=== PATIENT | female | born 1955 | race Caucasian/White ===

== ENCOUNTER 2017-12-25 11:26 | Observation (INO) | payer BC, OTHER ==
[2017-12-25] MEDS ORDERED: BABY ASPIRIN 81 MG CHEW PO ONE (11:42)
[2017-12-25] MEDS ORDERED: Sodium Chloride 0.9% 1000 ML 1,000 ML IV SCH (11:45)
--- NOTE | 2017-12-25 11:45 | ERPHSYRPT ---
- History of Present Illness Time Seen by Provider: 12/25/17 11:45 Historian: patient Physician History: PATIENT WITH A 40 PACK YEAR SMOKING HISTORY COMPLAINS OF LEFT SUBSTERNAL CHEST PAINS SINCE 2AM, PAIN SCALE 4/10, DENIES CHEST PAIN UPON ARRIVAL TO EMERGENCY, DENIES DIAPHORESIS, PALPITATIONS OR DYSPNEA. STATES PAIN ON OCCASION RADIATES TO LEFT ARM. Timing/Duration: yesterday Quality: sharpness Location: substernal Chest Pain Radiation: arm Severity of Pain-Max: moderate Severity of Pain-Current: none Modifying Factors: Improves With: nothing Associated Symptoms: denies symptoms Prior Chest Pain/Cardiac Workup: no prior chest pain Nitro Today/Relief: no nitro taken today Aspirin Treatment Today: 81 mg x 4, provided by ED Allergies/Adverse Reactions: Sulfa (Sulfonamide Antibiotics) Allergy (Verified 12/25/17 12:22) - Review of Systems Constitutional: No Fever, No Chills Eyes: No Symptoms Ears, Nose, & Throat: No Symptoms Respiratory: No Symptoms, No Cough, No Dyspnea Cardiac: No Chest Pain, No Edema, No Syncope Abdominal/Gastrointestinal: No Symptoms, No Abdominal Pain, No Nausea, No Vomiting, No Diarrhea Genitourinary Symptoms: No Symptoms, No Dysuria Musculoskeletal: No Symptoms, No Back Pain, No Neck Pain Skin: No Rash Neurological: No Dizziness, No Focal Weakness, No Sensory Changes Psychological: No Symptoms Endocrine: No Symptoms All Other Systems: Reviewed and Negative - Nursing Vital Signs Nursing Vital Signs: Initial Vital Signs Pulse Rate 84 12/25/17 11:44 Respiratory Rate 20 12/25/17 11:44 Blood Pressure 167/109 12/25/17 11:44 O2 Sat by Pulse Oximetry 98 12/25/17 11:44 Pain Scale Pain Intensity 0 - Physical Exam General Appearance: no apparent distress, alert Eye Exam: PERRL/EOMI, eyes nml inspection Ears, Nose, Throat Exam: normal ENT inspection, moist mucous membranes Neck Exam: normal inspection, non-tender, supple, full range of motion Respiratory Exam: normal breath sounds, lungs clear, No respiratory distress Cardiovascular Exam: regular rate/rhythm, normal heart sounds Gastrointestinal/Abdomen Exam: soft, normal bowel sounds (NONTENDER), No tenderness, No mass Back Exam: normal inspection, No CVA tenderness, No vertebral tenderness Extremity Exam: normal inspection, normal range of motion Neurologic Exam: alert, oriented x 3, cooperative, normal mood/affect, sensation nml, No motor deficits Skin Exam: normal color, warm, dry SpO2 Interpretation: normal SpO2: 98 - Course EKG Interpreted by Me: RATE, Sinus Rhythm, NORMAL AXIS (RATE 84) - Radiology Exams Chest X-ray Interpretation: Discussed w/ radiologist, Negative - CT Exams Chest CT Interpretation: Discussed w/radiologist (NEGATIVE OF PULMONARY EMBOLUS) Ordered Tests: Active Orders 24 hr Category Date Time Status Up With Assistance ROUTINE Activity 12/25/17 14:27 Ordered Call Admit Doctor for Orders ROUTINE Care 12/25/17 14:26 Ordered [employer] Counterperson STAT Care 12/25/17 11:43 Active Code Status Order ROUTINE Care 12/25/17 14:26 Ordered EKG-ER Only STAT Care 12/25/17 11:42 Active IV Care Q6H Care 12/25/17 14:26 Ordered IV Insertion STAT Care 12/25/17 11:42 Active Implement Chest Pain Pathway ROUTINE Care 12/25/17 14:26 Ordered Oxygen-ED Only NASAL CANNULA 2 lpm Care 12/25/17 11:[address] in Observation ROUTINE Care 12/25/17 14:26 Ordered Jovan Hose, Apply ROUTINE Care 12/25/17 14:26 Ordered Telemetry ROUTINE Care 12/25/17 14:26 Ordered Vital Signs Q4H Care 12/25/17 14:26 Ordered Weight,Daily 0600 Care 12/25/17 14:26 Ordered Cardiac Diet Diet 12/25/17 Dinner Ordered CHEST 1 VIEW (PORTABLE) Stat Exams 12/25/17 12:03 Completed CHEST WITH CONTRAST [CT] Stat Exams 12/25/17 12:33 Completed CBC W DIFF Stat Lab 12/25/17 11:56 Completed CMP Stat Lab 12/25/17 11:56 Completed D-DIMER QUANTITATION Stat Lab 12/25/17 11:56 Completed LIPID PROFILE AM.LAB Lab 12/26/17 04:00 Ordered NT PRO BNP Stat Lab 12/25/17 11:56 Completed PROTIME WITH INR Stat Lab 12/25/17 11:56 Completed TROPONIN Q3H Lab 12/25/17 11:56 Completed TROPONIN Q3H Lab 12/25/17 14:45 Ordered TROPONIN Q3H Lab 12/25/17 17:45 Ordered TROPONIN Q3H Lab 12/25/17 20:45 Ordered TROPONIN Q3H Lab 12/25/17 23:45 Ordered TSH [TSH, 3RD Generation] Stat Lab 12/25/17 12:47 Completed EKG Q8HX2,QAMX3,PRN RT 12/25/17 14:26 Ordered Pulse Oximetry Q4H RT 12/25/17 14:26 Ordered Transfer Order Routine Transfer 12/25/17 Ordered Medication Summary Generic Name Dose Route Start Last Admin Trade Name Freq PRN Reason Stop Dose Admin Acetaminophen 650 mg 12/25/17 14:26 Tylenol 325 Mg PO 01/24/18 14:25 Q4H PRN PRN PAIN AND/OR FEVER Al Hydrox/Mg Hydrox/Simethicone 30 ml 12/25/17 14:26 Maalox Es 30 Ml Unit Dose PO 01/24/18 14:25 Q4H PRN PRN INDIGESTION Albuterol Sulfate 2.5 mg 12/25/17 14:29 Proventil 2.5 Mg/3 Ml Neb IH 01/24/18 14:28 Q4H PRN PRN SHORTNESS OF BREATH/WHEEZING Aspirin 325 mg 12/26/17 10:00 Ecotrin 325 Mg PO 01/25/18 09:59 DAILY ROLAND Sodium Chloride 1,000 mls @ 100 mls/hr 12/25/17 11:45 12/25/17 11:59 Sodium Chloride 0.9% 1000 Ml IV 01/24/18 11:44 100 mls/hr .Q10H ROLAND Administration Sodium Chloride 500 mls @ 50 mls/hr 12/25/17 14:30 Sodium Chloride 0.9% 500 Ml IV 01/24/18 14:29 .Q10H ROLAND Lisinopril 10 mg 12/26/17 10:00 Zestril 10 Mg PO 01/25/18 09:59 DAILY ROLAND Magnesium Hydroxide 30 - 60 ml 12/25/17 14:26 Milk Of Magnesia 30 Ml PO 01/24/18 14:25 QDP PRN CONSTIPATION Morphine Sulfate 4 mg 12/25/17 14:30 Morphine Sulfate 4 Mg Inj IV 12/30/17 14:29 Q4H PRN PRN PAIN Nitroglycerin 0.4 mg 12/25/17 14:26 Nitrostat 0.4 Mg Tablet SL 01/24/18 14:25 .Q5MIN PRN CHEST PAIN Nitroglycerin 1 gm 12/25/17 22:00 Nitro-Bid 2% Ud Packets TOP 01/24/18 21:59 Q8HT ROLAND Ondansetron HCl 4 mg 12/25/17 14:26 Zofran 4 Mg/2 Ml Vial IV 01/24/18 14:25 Q4H PRN PRN NAUSEA/VOMITING Senna/Docusate Sodium 2 udtab 12/25/17 14:26 Senokot-S Tablet PO 01/24/18 14:25 BID PRN PRN CONSTIPATION Discontinued Medications Generic Name Dose Route Start Last Admin Trade Name Freq PRN Reason Stop Dose Admin Aspirin 324 mg 12/25/17 11:42 12/25/17 11:58 Baby Aspirin 81 Mg Chew PO 12/25/17 11:43 324 mg STAT ONE Administration Aspirin Confirm 12/25/17 11:52 Baby Aspirin 81 Mg Chew Administered 12/25/17 11:53 Dose 324 mg .ROUTE .STK-MED ONE Clonidine 0.2 mg 12/25/17 12:47 12/25/17 12:56 Catapres 0.1 Mg PO 12/25/17 12:48 0.2 mg STAT ONE Administration Clonidine Confirm 12/25/17 12:56 Catapres 0.1 Mg Administered 12/25/17 12:57 Dose 0.2 mg .ROUTE .STK-MED ONE Labetalol HCl 10 mg 12/25/17 12:20 12/25/17 12:29 Trandate 20 Mg/5 Ml Syringe IV 12/25/17 12:21 10 mg STAT ONE Administration Labetalol HCl Confirm 12/25/17 12:24 Trandate 20 Mg/5 Ml Syringe Administered 12/25/17 12:25 Dose 20 mg IV .STK-MED ONE Nitroglycerin 1 gm 12/25/17 12:21 12/25/17 12:29 Nitro-Bid 2% Ud Packets TOP 12/25/17 12:22 1 gm STAT ONE Administration Nitroglycerin Confirm 12/25/17 12:23 Nitro-Bid 2% Ud Packets Administered 12/25/17 12:24 Dose 1 gm .ROUTE .STK-MED ONE Lab/Rad Data: Laboratory Result Diagrams 12/25/17 11:56 11 11:56 Laboratory Results 12/25/17 12/25/17 12/25/17 Range/Units 12:47 11:56 11:56 WBC (4.0-10.5) K/mm3 RBC (4.1-5.4) M/mm3 Hgb (12.0-16.0) gm/dl Hct (35-47) % MCV (78-100) fl MCH (26-32) pg MCHC (32-36) g/dl RDW (11.5-14.0) % Plt Count (150-450) K/mm3 MPV (6-9.5) fl Gran % (36.0-66.0) % Eos # (Auto) (0-0.5) Absolute Lymphs (auto) (1.0-4.6) Absolute Monos (auto) (0.0-1.3) Lymphocytes % (24.0-44.0) % Monocytes % (0.0-12.0) % Eosinophils % (0.00-5.0) % Basophils % (0.0-0.4) % Absolute Granulocytes (1.4-6.9) Basophils # (0-0.4) PT 11.7 (9.95-12.35) SECONDS INR 1.01 (0.8-3.0) D-Dimer 582 H* (215-500) ng/mL Sodium (137-145) mmol/L Potassium (3.5-5.1) mmol/L Chloride (98-107) mmol/L Carbon Dioxide (22-30) mmol/L Anion Gap (5-15) MEQ/L BUN (7-17) mg/dL Creatinine (0.52-1.04) mg/dL Estimated GFR ML/MIN Glucose (74-106) mg/dL Calcium (8.4-10.2) mg/dL Total Bilirubin (0.2-1.3) mg/dL AST (14-36) U/L ALT (0-35) U/L Alkaline Phosphatase (38-126) U/L Troponin I < 0.012 (0.000-0.034) ng/mL NT-Pro-B Natriuret Pep (0-900) pg/mL Serum Total Protein (6.3-8.2) g/dL Albumin (3.5-5.0) g/dL TSH 3rd Generation 2.690 (0.47-4.68) mIU/L 12/25/17 12/25/17 Range/Units 11:56 11:56 WBC 5.7 (4.0-10.5) K/mm3 RBC 4.94 (4.1-5.4) M/mm3 Hgb 15.3 (12.0-16.0) gm/dl Hct 45.6 (35-47) % MCV 92.3 (78-100) fl MCH 31.0 (26-32) pg MCHC 33.6 (32-36) g/dl RDW 14.3 H (11.5-14.0) % Plt Count 312 (150-450) K/mm3 MPV 8.5 (6-9.5) fl Gran % 60.6 (36.0-66.0) % Eos # (Auto) 0.14 (0-0.5) Absolute Lymphs (auto) 1.57 (1.0-4.6) Absolute Monos (auto) 0.50 (0.0-1.3) Lymphocytes % 27.6 (24.0-44.0) % Monocytes % 8.8 (0.0-12.0) % Eosinophils % 2.5 (0.00-5.0) % Basophils % 0.5 (0.0-0.4) % Absolute Granulocytes 3.44 (1.4-6.9) Basophils # 0.03 (0-0.4) PT (9.95-12.35) SECONDS INR (0.8-3.0) D-Dimer (215-500) ng/mL Sodium 140 (137-145) mmol/L Potassium 4.1 (3.5-5.1) mmol/L Chloride 104 (98-107) mmol/L Carbon Dioxide 29 (22-30) mmol/L Anion Gap 11.2 (5-15) MEQ/L BUN 14 (7-17) mg/dL Creatinine 0.74 (0.52-1.04) mg/dL Estimated GFR > 60.0 ML/MIN Glucose 90 (74-106) mg/dL Calcium 9.5 (8.4-10.2) mg/dL Total Bilirubin 0.50 (0.2-1.3) mg/dL AST 20 (14-36) U/L ALT 13 (0-35) U/L Alkaline Phosphatase 65 (38-126) U/L Troponin I (0.000-0.034) ng/mL NT-Pro-B Natriuret Pep 53.9 (0-900) pg/mL Serum Total Protein 7.9 (6.3-8.2) g/dL Albumin 4.5 (3.5-5.0) g/dL TSH 3rd Generation (0.47-4.68) mIU/L - Progress Progress: improved Progress Note: 12/25/17 12:12 ADMINISTERED 4 BABY ASPIRIN, IV NORMAL SALINE AT 100ML/HR, LABETOLOL 10MG IV AND CATAPRES 0.2MG ORALLY, APPLICATION NITROPASTE 1" TO ANTERIOR CHEST WALL, BP 190/104 IMPROVED TO BP 129/84 12/25/17 14:[address] Brown (DISCUSSED WITH DR BROWN AT 1415 FOR OBSERVATION) - Departure Time of Disposition: 14:30 Departure Disposition: Observation Clinical Impression: ACUTE CHEST PAIN, HYPERTENSION Condition: Stable Critical Care Time: No Referrals: IMAN TINSLEY [Primary Care Provider] -
[2017-12-25] MEDS ORDERED: Sodium Chloride 0.9% 1000 ML 1,000 ML ONE (11:52)
[2017-12-25] MEDS ORDERED: BABY ASPIRIN 81 MG CHEW ONE (11:52)
[2017-12-25 11:57] LABS: BASOPHIL % 0.5 % (0.0-0.4); Basophil (Absolute #) 0.03 (0-0.4); Eosinophil % 2.5 % (0.00-5.0); Eosinophil (Absolute #) 0.14 (0-0.5); Granulocyte Absolute (ANC) 3.44 (1.4-6.9); Granulocytes % 60.6 % (36.0-66.0); Hematocrit 45.6 % (35-47); Hemoglobin 15.3 gm/dl (12.0-16.0); Lymphocyte (Absolute #) 1.57 (1.0-4.6); Lymphocytes % 27.6 % (24.0-44.0); Mean Cell Volume 92.3 fl (78-100); Mean Corpuscular Hgb Concent. 33.6 g/dl (32-36); Mean Platelet Volume 8.5 fl (6-9.5); Monocytes % 8.8 % (0.0-12.0); Platelet Count 312 K/mm3 (150-450); Red Blood Count 4.94 M/mm3 (4.1-5.4); Red Cell Distribution Width 14.3 % (11.5-14.0); White Blood Count 5.7 K/mm3 (4.0-10.5)
[2017-12-25 12:17] LABS: INR 1.01 (0.8-3.0)
[2017-12-25] MEDS ORDERED: TRANDATE 20 MG/5 ML SYRINGE IV ONE ×2 (12:20→12:24)
[2017-12-25] MEDS ORDERED: NITRO-BID 2% UD PACKETS TOP ONE (12:21)
[2017-12-25] MEDS ORDERED: NITRO-BID 2% UD PACKETS ONE (12:23)
--- NOTE | 2017-12-25 12:28 | XRAY ---
Indication: Chest pain. Comparison: None Portable chest hyperinflated and clear. Heart and mediastinal structures within normal limits. Bony thorax intact with mild osteopenia and moderate double curvature thoracolumbar scoliosis. Impression: Nonacute hyperinflated chest with chronic features.
[2017-12-25 12:32] LABS: ALBUMIN 4.5 g/dL (3.5-5.0); ALKALINE PHOSPHATASE 65 U/L (38-126); ANION GAP 11.2 MEQ/L (5-15); BLOOD UREA NITROGEN 14 mg/dL (7-17); CHLORIDE 104 mmol/L (98-107); Calcium 9.5 mg/dL (8.4-10.2); Carbon Dioxide 29 mmol/L (22-30); Creatinine 1 0.74 mg/dL (0.52-1.04); Glucose 90 mg/dL (74-106); NT PRO BNP 53.9 pg/mL (0-900); Potassium 4.1 mmol/L (3.5-5.1); SGOT/AST 20 U/L (14-36); SGPT/ALT 13 U/L (0-35); SODIUM 140 mmol/L (137-145); Total Protein 7.9 g/dL (6.3-8.2)
[2017-12-25] MEDS ORDERED: Catapres 0.1 MG PO ONE (12:47)
[2017-12-25] MEDS ORDERED: Catapres 0.1 MG ONE (12:56)
--- NOTE | 2017-12-25 13:51 | XRAY ---
Indication: Chest pain. Elevated d-dimer. Multiple contiguous axial images obtained through the chest using 80 cc Isovue 370 contrast and PE protocol. Comparison: None There is good opacification of the pulmonary arteries to include the lobar and segmental branches. No filling defect or pulmonary embolus. Heart is not enlarged. Aorta demonstrates minimal arch calcifications without aneurysm/dissection. No pathologic mediastinal/hilar lymphadenopathy. Examination of the lung parenchyma demonstrates minimal bilateral dependent atelectasis and minimal peripheral right lower lobe fibrosis/scarring. No suspicious pulmonary mass, infiltrate, or effusion. Bony thorax intact with minimal degenerative changes throughout the spine and double coverture thoracolumbar scoliosis. Limited upper abdomen including adrenal glands unremarkable. Impression: Negative pulmonary embolus. No acute cardiopulmonary abnormalities. Incidental scoliosis. CTDI 10.00
[2017-12-25] MEDS ORDERED: Nitrostat 0.4 MG Tablet SL PRN (14:26)
[2017-12-25] MEDS ORDERED: Senokot-S Tablet PO PRN (14:26)
[2017-12-25] MEDS ORDERED: TYLENOL 325 MG PO PRN (14:26)
[2017-12-25] MEDS ORDERED: Zofran 4 MG/2 ML VIAL IV PRN (14:26)
[2017-12-25] MEDS ORDERED: MAALOX ES 30 ML UNIT DOSE PO PRN (14:26)
[2017-12-25] MEDS ORDERED: MILK OF MAGNESIA 30 ML PO PRN (14:26)
[2017-12-25] MEDS ORDERED: PROVENTIL 2.5 MG/3 ML NEB IH PRN (14:29)
[2017-12-25] MEDS ORDERED: MORPHINE SULFATE 4 MG INJ IV PRN (14:30)
[2017-12-25] MEDS: Sodium Chloride 0.9% 1000 ML 1,000 ML IV SCH (16:18)
--- NOTE | 2017-12-25 16:31 | PCM.HP ---
History of Present Illness - Chief Complaint Chief Complaint: CP. HTN History of Present Illness: is a 62 year old female who has not seen a physician for several years. She reports onset of left/substernal chest pain at 2am this morning, pain is aching and radiates to the her left upper back. had some associated numbness in the left arm, no shortness of breath, no nausea, no diaphoresis. She has no cardiac history but is a long time smoker with a family hx of [place] at an early age in her son. She felt as though the pain was from a fall she had while walking her dog 4 days ago, has had back pain and some muscle soreness since the fall. she is pain-free at this time, was very hypertensive on arrival. has never been on htn meds in the past. - Review of Systems Constitutional: No Fever, No Chills Eyes: No Symptoms Ears, Nose, & Throat: No Symptoms Respiratory: No Cough, No Short Of Breath Cardiac: Chest Pain Abdominal/Gastrointestinal: No Symptoms Genitourinary Symptoms: No Dysuria Skin: No Rash Neurological: No Dizziness, No Focal Weakness, No Sensory Changes Psychological: No Symptoms All Other Systems: Reviewed and Negative Medications & Allergies Home Medications: Home Medication List No Reportable Medications [No Reported Medications] 12/25/17 [History Confirmed 12/25/17] Allergies/Adverse Reactions: Allergies Allergy/AdvReac Type Severity Reaction Status Date / Time Sulfa (Sulfonamide Allergy Verified 12/25/17 12:22 Antibiotics) - Past Medical History Past Medical History: No - Female History Are you now?: No - Past Surgical History Past Surgical History: Yes Other Surgical History: lymph node removal-left axilla. carpal tunnel - Social History Smoking Status: Current every day smoker How long have you smoked: 42 Alcohol: None Drug Use: none Significant Family History: heart disease (son age 33), cancer (mother) - Physical Exam Vital Signs: Vital Signs - 24 hr Temp Pulse Pulse Resp BP Pulse Ox 12/25/17 16:06 95 12/25/17 15:45 98.8 F 91 H 18 135/75 12/25/17 15:18 88 20 138/81 94 L 12/25/17 14:40 94 H 20 133/78 96 12/25/17 14:32 98 12/25/17 14:18 90 20 129/84 94 L 12/25/17 13:36 86 20 162/107 94 L 12/25/17 12:19 90 20 185/113 95 12/25/17 11:44 84 84 20 167/109 98 General Appearance: no apparent distress, alert, thin Neurologic Exam: alert, oriented x 3, cooperative, rock star II-XII nml as tested, normal mood/affect, sensation nml, No motor deficits, No sensory deficit Eye Exam: PERRL/EOMI, eyes nml inspection Neck Exam: normal inspection, non-tender, supple, full range of motion Respiratory Exam: normal breath sounds, lungs clear, No respiratory distress Cardiovascular Exam: regular rate/rhythm, normal heart sounds, normal peripheral pulses Gastrointestinal/Abdomen Exam: soft, normal bowel sounds, No tenderness, No mass Skin Exam: normal color, warm, dry, No rash Results - Labs Lab/Micro Results: Lab Results-Last 24 Hours 12/25/17 12/25/17 12/25/17 Range/Units 11:56 11:56 11:56 WBC 5.7 (4.0-10.5) K/mm3 RBC 4.94 (4.1-5.4) M/mm3 Hgb 15.3 (12.0-16.0) gm/dl Hct 45.6 (35-47) % MCV 92.3 (78-100) fl MCH 31.0 (26-32) pg MCHC 33.6 (32-36) g/dl RDW 14.3 H (11.5-14.0) % Plt Count 312 (150-450) K/mm3 MPV 8.5 (6-9.5) fl Gran % 60.6 (36.0-66.0) % Eos # (Auto) 0.14 (0-0.5) Absolute Lymphs (auto) 1.57 (1.0-4.6) Absolute Monos (auto) 0.50 (0.0-1.3) Lymphocytes % 27.6 (24.0-44.0) % Monocytes % 8.8 (0.0-12.0) % Eosinophils % 2.5 (0.00-5.0) % Basophils % 0.5 (0.0-0.4) % Absolute Granulocytes 3.44 (1.4-6.9) Basophils # 0.03 (0-0.4) PT 11.7 (9.95-12.35) SECONDS INR 1.01 (0.8-3.0) D-Dimer 582 H* (215-500) ng/mL Sodium 140 (137-145) mmol/L Potassium 4.1 (3.5-5.1) mmol/L Chloride 104 (98-107) mmol/L Carbon Dioxide 29 (22-30) mmol/L Anion Gap 11.2 (5-15) MEQ/L BUN 14 (7-17) mg/dL Creatinine 0.74 (0.52-1.04) mg/dL Estimated GFR > 60.0 ML/MIN Glucose 90 (74-106) mg/dL Calcium 9.5 (8.4-10.2) mg/dL Total Bilirubin 0.50 (0.2-1.3) mg/dL AST 20 (14-36) U/L ALT 13 (0-35) U/L Alkaline Phosphatase 65 (38-126) U/L Troponin I (0.000-0.034) ng/mL NT-Pro-B Natriuret Pep 53.9 (0-900) pg/mL Serum Total Protein 7.9 (6.3-8.2) g/dL Albumin 4.5 (3.5-5.0) g/dL TSH 3rd Generation (0.47-4.68) mIU/L 12/25/17 12/25/17 Range/Units 11:56 12:47 WBC (4.0-10.5) K/mm3 RBC (4.1-5.4) M/mm3 Hgb (12.0-16.0) gm/dl Hct (35-47) % MCV (78-100) fl MCH (26-32) pg MCHC (32-36) g/dl RDW (11.5-14.0) % Plt Count (150-450) K/mm3 MPV (6-9.5) fl Gran % (36.0-66.0) % Eos # (Auto) (0-0.5) Absolute Lymphs (auto) (1.0-4.6) Absolute Monos (auto) (0.0-1.3) Lymphocytes % (24.0-44.0) % Monocytes % (0.0-12.0) % Eosinophils % (0.00-5.0) % Basophils % (0.0-0.4) % Absolute Granulocytes (1.4-6.9) Basophils # (0-0.4) PT (9.95-12.35) SECONDS INR (0.8-3.0) D-Dimer (215-500) ng/mL Sodium (137-145) mmol/L Potassium (3.5-5.1) mmol/L Chloride (98-107) mmol/L Carbon Dioxide (22-30) mmol/L Anion Gap (5-15) MEQ/L BUN (7-17) mg/dL Creatinine (0.52-1.04) mg/dL Estimated GFR ML/MIN Glucose (74-106) mg/dL Calcium (8.4-10.2) mg/dL Total Bilirubin (0.2-1.3) mg/dL AST (14-36) U/L ALT (0-35) U/L Alkaline Phosphatase (38-126) U/L Troponin I < 0.012 (0.000-0.034) ng/mL NT-Pro-B Natriuret Pep (0-900) pg/mL Serum Total Protein (6.3-8.2) g/dL Albumin (3.5-5.0) g/dL TSH 3rd Generation 2.690 (0.47-4.68) mIU/L - Radiology Impressions Radiology Exams & Impressions: Radiology Procedures Category Date Time Status CHEST 1 VIEW (PORTABLE) Stat Exams 12/25/17 12:03 Completed CHEST WITH CONTRAST [CT] Stat Exams 12/25/17 12:33 Completed - Other Procedures and Tests Respiratory Therapy 12/25/17 16:06 Respiratory Therapy Assessment DAILY 12/25/17 19:36 EKG ONCE 12/26/17 05:00 EKG ONCE 12/27/17 05:00 EKG ONCE 12/28/17 05:00 EKG ONCE Assessment/Plan (1) Chest pain Current Visit: Yes Status: Acute Assessment & Plan: will r/o OK, likely noncardiac. will get echo in the am Code(s): R07.9 - CHEST PAIN, UNSPECIFIED (2) Hypertensive urgency Current Visit: Yes Status: Acute Assessment & Plan: normotensive after receiving labetalol and clonidine in ER, continue lisinopril 10mg daily Code(s): I16.0 - HYPERTENSIVE URGENCY
[2017-12-25] MEDS: NITRO-BID 2% UD PACKETS TOP SCH (22:38)
[2017-12-26] MEDS: Sodium Chloride 0.9% 1000 ML 1,000 ML IV SCH (04:07)
[2017-12-26] MEDS: NITRO-BID 2% UD PACKETS TOP SCH (05:30)
[2017-12-26 05:48] LABS: Risk Ratio 3.9
--- NOTE | 2017-12-26 09:08 | PCM.DS ---
Discharge Summary Date of Admission: 12/25/17 15:30 Admitting Physician: BRAYDEN BROWN Primary Care Provider: IMAN TINSLEY Allergies Allergies Sulfa (Sulfonamide Antibiotics) Allergy (Verified 12/25/17 12:22) Hospital Summary - Hospital Course Hospital Course: Pt is 62 yo female with no local MD who came to ER [facility]. NC ruled out with negative troponin x 5. She did have an elevated d-dimer but CTA chest nonacute and negative for PE. She has not seen a doctor for years. She was to have an echo yesterday. Overnight her O2 sat dropped so she had an overnight pulse ox done and should qualify for home O2 at night (I discussed with the patient). She also snores and will need a sleep study outpatient. Her WBC and Hgb were normal here. BMP normal. Chol 142, HDL 36, triglycerides 59, LDL 89. Pt was quite hypertensive on arrival. Since then BP have been in the 110s and 130s. Will go home on lisinopril 10mg. Plans to f/u with Dr. Brown in 1 week. - Vitals & Intake/Output Vital Signs: Vital Signs Temperature 97.6 F 12/26/17 08:08 Pulse Rate 65 12/26/17 08:08 Respiratory Rate 20 12/26/17 08:08 Blood Pressure 130/78 12/26/17 08:08 O2 Sat by Pulse Oximetry 96 12/26/17 08:08 Intake & Output: Intake & Output 12/23/17 12/24/17 12/25/17 12/26/17 12:59 11:59 11:59 11:59 Intake Total 1582 Balance 1582 Weight 54.431 kg 56.9 kg - Lab Result Diagrams: 12/25/17 11:56 12/25/17 11:56 Lab Results-Last 24 Hrs: Lab Results-Last 24 Hours 12/25/17 12/25/17 12/25/17 Range/Units 00:10 11:56 11:56 WBC 5.7 (4.0-10.5) K/mm3 RBC 4.94 (4.1-5.4) M/mm3 Hgb 15.3 (12.0-16.0) gm/dl Hct 45.6 (35-47) % MCV 92.3 (78-100) fl MCH 31.0 (26-32) pg MCHC 33.6 (32-36) g/dl RDW 14.3 H (11.5-14.0) % Plt Count 312 (150-450) K/mm3 MPV 8.5 (6-9.5) fl Gran % 60.6 (36.0-66.0) % Eos # (Auto) 0.14 (0-0.5) Absolute Lymphs (auto) 1.57 (1.0-4.6) Absolute Monos (auto) 0.50 (0.0-1.3) Lymphocytes % 27.6 (24.0-44.0) % Monocytes % 8.8 (0.0-12.0) % Eosinophils % 2.5 (0.00-5.0) % Basophils % 0.5 (0.0-0.4) % Absolute Granulocytes 3.44 (1.4-6.9) Basophils # 0.03 (0-0.4) PT (9.95-12.35) SECONDS INR (0.8-3.0) D-Dimer (215-500) ng/mL Sodium 140 (137-145) mmol/L Potassium 4.1 (3.5-5.1) mmol/L Chloride 104 (98-107) mmol/L Carbon Dioxide 29 (22-30) mmol/L Anion Gap 11.2 (5-15) MEQ/L BUN 14 (7-17) mg/dL Creatinine 0.74 (0.52-1.04) mg/dL Estimated GFR > 60.0 ML/MIN Glucose 90 (74-106) mg/dL Calcium 9.5 (8.4-10.2) mg/dL Total Bilirubin 0.50 (0.2-1.3) mg/dL AST 20 (14-36) U/L ALT 13 (0-35) U/L Alkaline Phosphatase 65 (38-126) U/L Troponin I < 0.012 (0.000-0.034) ng/mL NT-Pro-B Natriuret Pep 53.9 (0-900) pg/mL Serum Total Protein 7.9 (6.3-8.2) g/dL Albumin 4.5 (3.5-5.0) g/dL Triglycerides (30-150) mg/dL Cholesterol (50-200) mg/dL LDL Cholesterol (30-100) mg/dL HDL Cholesterol (40-60) mg/dL Heart Disease Risk Ratio TSH 3rd Generation (0.47-4.68) mIU/L 12/25/17 12/25/17 12/25/17 Range/Units 11:56 11:56 12:47 WBC (4.0-10.5) K/mm3 RBC (4.1-5.4) M/mm3 Hgb (12.0-16.0) gm/dl Hct (35-47) % MCV (78-100) fl MCH (26-32) pg MCHC (32-36) g/dl RDW (11.5-14.0) % Plt Count (150-450) K/mm3 MPV (6-9.5) fl Gran % (36.0-66.0) % Eos # (Auto) (0-0.5) Absolute Lymphs (auto) (1.0-4.6) Absolute Monos (auto) (0.0-1.3) Lymphocytes % (24.0-44.0) % Monocytes % (0.0-12.0) % Eosinophils % (0.00-5.0) % Basophils % (0.0-0.4) % Absolute Granulocytes (1.4-6.9) Basophils # (0-0.4) PT 11.7 (9.95-12.35) SECONDS INR 1.01 (0.8-3.0) D-Dimer 582 H* (215-500) ng/mL Sodium (137-145) mmol/L Potassium (3.5-5.1) mmol/L Chloride (98-107) mmol/L Carbon Dioxide (22-30) mmol/L Anion Gap (5-15) MEQ/L BUN (7-17) mg/dL Creatinine (0.52-1.04) mg/dL Estimated GFR ML/MIN Glucose (74-106) mg/dL Calcium (8.4-10.2) mg/dL Total Bilirubin (0.2-1.3) mg/dL AST (14-36) U/L ALT (0-35) U/L Alkaline Phosphatase (38-126) U/L Troponin I < 0.012 (0.000-0.034) ng/mL NT-Pro-B Natriuret Pep (0-900) pg/mL Serum Total Protein (6.3-8.2) g/dL Albumin (3.5-5.0) g/dL Triglycerides (30-150) mg/dL Cholesterol (50-200) mg/dL LDL Cholesterol (30-100) mg/dL HDL Cholesterol (40-60) mg/dL Heart Disease Risk Ratio TSH 3rd Generation 2.690 (0.47-4.68) mIU/L 12/25/17 12/25/17 12/25/17 Range/Units 18:20 20:55 Unknown WBC (4.0-10.5) K/mm3 RBC (4.1-5.4) M/mm3 Hgb (12.0-16.0) gm/dl Hct (35-47) % MCV (78-100) fl MCH (26-32) pg MCHC (32-36) g/dl RDW (11.5-14.0) % Plt Count (150-450) K/mm3 MPV (6-9.5) fl Gran % (36.0-66.0) % Eos # (Auto) (0-0.5) Absolute Lymphs (auto) (1.0-4.6) Absolute Monos (auto) (0.0-1.3) Lymphocytes % (24.0-44.0) % Monocytes % (0.0-12.0) % Eosinophils % (0.00-5.0) % Basophils % (0.0-0.4) % Absolute Granulocytes (1.4-6.9) Basophils # (0-0.4) PT (9.95-12.35) SECONDS INR (0.8-3.0) D-Dimer (215-500) ng/mL Sodium (137-145) mmol/L Potassium (3.5-5.1) mmol/L Chloride (98-107) mmol/L Carbon Dioxide (22-30) mmol/L Anion Gap (5-15) MEQ/L BUN (7-17) mg/dL Creatinine (0.52-1.04) mg/dL Estimated GFR ML/MIN Glucose (74-106) mg/dL Calcium (8.4-10.2) mg/dL Total Bilirubin (0.2-1.3) mg/dL AST (14-36) U/L ALT (0-35) U/L Alkaline Phosphatase (38-126) U/L Troponin I < 0.012 < 0.012 < 0.012 (0.000-0.034) ng/mL NT-Pro-B Natriuret Pep (0-900) pg/mL Serum Total Protein (6.3-8.2) g/dL Albumin (3.5-5.0) g/dL Triglycerides (30-150) mg/dL Cholesterol (50-200) mg/dL LDL Cholesterol (30-100) mg/dL HDL Cholesterol (40-60) mg/dL Heart Disease Risk Ratio TSH 3rd Generation (0.47-4.68) mIU/L 12/26/17 Range/Units 05:10 WBC (4.0-10.5) K/mm3 RBC (4.1-5.4) M/mm3 Hgb (12.0-16.0) gm/dl Hct (35-47) % MCV (78-100) fl MCH (26-32) pg MCHC (32-36) g/dl RDW (11.5-14.0) % Plt Count (150-450) K/mm3 MPV (6-9.5) fl Gran % (36.0-66.0) % Eos # (Auto) (0-0.5) Absolute Lymphs (auto) (1.0-4.6) Absolute Monos (auto) (0.0-1.3) Lymphocytes % (24.0-44.0) % Monocytes % (0.0-12.0) % Eosinophils % (0.00-5.0) % Basophils % (0.0-0.4) % Absolute Granulocytes (1.4-6.9) Basophils # (0-0.4) PT (9.95-12.35) SECONDS INR (0.8-3.0) D-Dimer (215-500) ng/mL Sodium (137-145) mmol/L Potassium (3.5-5.1) mmol/L Chloride (98-107) mmol/L Carbon Dioxide (22-30) mmol/L Anion Gap (5-15) MEQ/L BUN (7-17) mg/dL Creatinine (0.52-1.04) mg/dL Estimated GFR ML/MIN Glucose (74-106) mg/dL Calcium (8.4-10.2) mg/dL Total Bilirubin (0.2-1.3) mg/dL AST (14-36) U/L ALT (0-35) U/L Alkaline Phosphatase (38-126) U/L Troponin I (0.000-0.034) ng/mL NT-Pro-B Natriuret Pep (0-900) pg/mL Serum Total Protein (6.3-8.2) g/dL Albumin (3.5-5.0) g/dL Triglycerides 59 (30-150) mg/dL Cholesterol 142 (50-200) mg/dL LDL Cholesterol 89 (30-100) mg/dL HDL Cholesterol 36 L (40-60) mg/dL Heart Disease Risk Ratio 3.9 TSH 3rd Generation (0.47-4.68) mIU/L - Radiology Exams Ordered Rad Exams-Entire Visit: Radiology Procedures Category Date Time Status CHEST 1 VIEW (PORTABLE) Stat Exams 12/25/17 12:03 Completed CHEST WITH CONTRAST [CT] Stat Exams 12/25/17 12:33 Completed ECHO W/2D AND DOPPLER [US] Routine Exams 12/26/17 07:00 Ordered - Procedures and Test Procedures and Tests throughout Hospitalization: Therapy Orders & Screens 12/25/17 14:26 EKG Q8HX2,QAMX3,PRN Comment: 12/25/17 15:59 Smoking Cessation Education ONCE Comment: Diagnosis: CP. HTN Smoking Status: Current every day smoker How long have you smoked: 42 Have you smoked in the past 12 months: Yes Approximately how many cigarettes per day: 22 12/25/17 16:06 Respiratory Therapy Assessment DAILY Comment: Diagnosis: CP. HTN 12/25/17 19:36 EKG ONCE Comment: Diagnosis: CP. HTN 12/26/17 05:00 EKG ONCE Comment: Diagnosis: CP. HTN 12/27/17 05:00 EKG ONCE Comment: Diagnosis: CP. HTN 12/28/17 05:00 EKG ONCE Comment: Diagnosis: CP. HTN Discharge Exam General Appearance: no apparent distress, alert Neurologic Exam: oriented x 3, cooperative Skin Exam: normal color, warm, dry, No rash Eye Exam: eyes nml inspection Ears, Nose, Throat Exam: moist mucous membranes Respiratory Exam: normal breath sounds, lungs clear, No crackles/rales, No rhonchi, No wheezing Cardiovascular Exam: regular rate/rhythm, normal heart sounds, No murmur Gastrointestinal/Abdomen Exam: soft, normal bowel sounds, No tenderness, No distention Extremity Exam: normal inspection, No pedal edema, No swelling Final Diagnosis/Problem List - Final Discharge Diagnosis/Problem (1) Chest pain Current Visit: Yes Status: Acute Onset Date: ~12/25/17 Assessment & Plan: NC ruled out with negative troponins x 5. May need outpatient stress test; would have her discuss with Dr. Brown at follow up visit. He will also have the echo results by then. (2) Hypertension Current Visit: Yes Status: Acute Assessment & Plan: continue 10mg lisinopril daily. (3) Elevated d-dimer Current Visit: Yes Status: Acute Onset Date: ~12/25/17 Assessment & Plan: CT chest was neg for PE. (4) Hypertensive urgency Current Visit: Yes Status: Resolved Onset Date: ~12/25/17 (5) Smoker Current Visit: Yes Status: Chronic - Discharge Disposition: Home, Self-Care Condition: Good Prescriptions: New Nitroglycerin 0.3 mg SL DAILY PRN #25 tab.subl MDD 3 PRN Reason: Chest Pain Lisinopril 10 mg [Zestril 10 MG] 10 mg PO DAILY #30 tablet Follow up with: IMAN TINSLEY [Primary Care Provider] - 1 Week BRAYDEN BROWN MD [Family Provider] - 1 Week
[2017-12-26] MEDS ORDERED: Ecotrin 325 MG PO SCH (10:00)
[2017-12-26] MEDS ORDERED: Zestril 10 MG PO SCH (10:00)
[2017-12-26 12:01] VITALS: BP 121/59; PULSE 76
[2017-12-26 14:53] VITALS: O2SAT 96
--- NOTE | 2017-12-26 15:45 | ECHO ---
DATE OF PROCEDURE: 12/26/2017 CLINICAL INFORMATION: Chest pain. The M-mode 2D, and Doppler echocardiogram including color flow Doppler shows normal contractibility of the left ventricle with an ejection fraction calculated at 70%. The left ventricle is normal in size at 4.6 cm. There is no apical thrombus present. The septal wall thickness is normal at 0.8 cm. The left ventricular posterior wall thickness is normal at 1.1 cm. The left ventricle appears to be normal in size and function. The left atrium is normal at 2.6 cm. The interatrial septum is intact. The right atrium is normal. The aortic valve opens well. There is mitral valve leaflet thickening. Mitral valve prolapse cannot be ruled out. There is mild mitral regurgitation present. There is mild tricuspid regurgitation. The right ventricular systolic pressure is normal at 29 mm of Mercury. The pulmonic valve is not well visualized. The aortic root is grossly normal. There is no pericardial effusion present. IMPRESSION: 1) MILD MITRAL REGURGITATION. 2) MILD TRICUSPID REGURGITATION. 3) NORMAL RIGHT VENTRICULAR SYSTOLIC PRESSURE. 4) NORMAL CONTRACTILITY OF THE LEFT VENTRICLE.
== END 2017-12-26 15:00 | disposition home or self-care (01) ==
LOC: ED 11:26 → MED SURG 15:30
PROVIDERS: ADMIT Family Medicine; ATTEND Family Medicine
DX: R07.9 Chest pain, unspecified (principal); I16.0 Hypertensive urgency; F51.9 Sleep disorder not due to a substance or known physiological condition, unspecified; R09.02 Hypoxemia; R06.83 Snoring; Z99.81 Dependence on supplemental oxygen
CPT/HCPCS: 36000; 36415; 71045; 71260; 80053; 80061; 83721; 83880; 84443; 84484; 85025; 85379; 85610; 93005; 93041; 93268; 93306; 94762; 96360; 96361; 96374; 99285; A9270-GY; G0378

== ENCOUNTER 2019-05-08 19:32 | Emergency (ER) | payer BC ==
--- NOTE | 2019-05-08 19:37 | ERPHSYRPT ---
- History of Present Illness Time Seen by Provider: 05/08/19 19:37 Source: patient, family Exam Limitations: no limitations Physician History: This is a 63-year-old female who has a history of hypertension and felt as though her blood pressure was elevated at work today. She had a similar episode of anxiety, mild left chest wall pain and shaking. When she arrived at the emergency department, her blood pressure was elevated. Patient takes lisinopril for her blood pressure. She occasionally uses nitroglycerin per her report for her high blood pressure. Patient arrives with no chest pain. She states she still feels anxious. Patient did not take any aspirin or nitroglycerin prior to arrival. Patient denies shortness of breath. She denies abdominal pain. Timing/Duration: today Severity: mild Associated Symptoms: chest pain (Left anterior) Allergies/Adverse Reactions: Sulfa (Sulfonamide Antibiotics) Allergy (Verified 05/08/19 20:09) Home Medications: Lisinopril 10 mg [Zestril 10 MG] 20 mg PO DAILY 05/08/19 [History] Hx Tetanus, Diphtheria Vaccination/Date Given: No Hx Influenza Vaccination/Date Given: No Hx Pneumococcal Vaccination/Date Given: No - Review of Systems Constitutional: No Symptoms Eyes: No Symptoms Ears, Nose, & Throat: No Symptoms Respiratory: No Symptoms Cardiac: Chest Pain (Mild left anterior) Abdominal/Gastrointestinal: No Symptoms ( chest wall) Genitourinary Symptoms: No Symptoms Musculoskeletal: No Symptoms Skin: No Symptoms Neurological: No Symptoms Psychological: Anxiety Endocrine: No Symptoms Hematologic/Lymphatic: No Symptoms Immunological/Allergic: No Symptoms All Other Systems: Reviewed and Negative - Past Medical History Pertinent Past Medical History: No Neurological History: No Pertinent History ENT History: No Pertinent History Cardiac History: No Pertinent History Respiratory History: No Pertinent History Endocrine Medical History: No Pertinent History Musculoskeletal History: No Pertinent History GI Medical History: No Pertinent History History: No Pertinent History Psycho-Social History: No Pertinent History Female Reproductive Disorders: No Pertinent History - Past Surgical History Past Surgical History: Yes Neuro Surgical History: No Pertinent History Cardiac: No Pertinent History Respiratory: No Pertinent History Gastrointestinal: No Pertinent History Genitourinary: No Pertinent History Musculoskeletal: No Pertinent History Female Surgical History: No Pertinent History Other Surgical History: lymph node removal-left axilla. carpal tunnel - Social History Smoking Status: Current every day smoker How long have you smoked: 42 Drug Use: none Patient Lives Alone: No Significant Family History: heart disease (son age 33), cancer (mother) - Nursing Vital Signs Nursing Vital Signs: Initial Vital Signs Temperature 99.0 F 05/08/19 19:59 Pulse Rate 115 H 05/08/19 19:59 Respiratory Rate 17 05/08/19 19:59 Blood Pressure 152/106 05/08/19 19:59 O2 Sat by Pulse Oximetry 99 05/08/19 19:59 Pain Scale Pain Intensity 0 - Physical Exam General Appearance: no apparent distress, alert, anxiety Eye Exam: PERRL/EOMI, eyes nml inspection Ears, Nose, Throat Exam: normal ENT inspection, moist mucous membranes Neck Exam: normal inspection, non-tender, supple, full range of motion Respiratory Exam: normal breath sounds, chest tenderness (Mild left anterior. Has resolved.), lungs clear, airway intact, No respiratory distress Cardiovascular Exam: regular rate/rhythm, normal heart sounds, normal peripheral pulses Gastrointestinal/Abdomen Exam: soft, No normal bowel sounds, No tenderness Pelvic Exam: not done Rectal Exam: not done Back Exam: normal inspection, normal range of motion, No CVA tenderness, No vertebral tenderness Extremity Exam: normal inspection, normal range of motion, pelvis stable Neurologic Exam: alert, oriented x 3, cooperative, teletypesetter II-XII nml as tested Skin Exam: normal color, warm, dry Lymphatic Exam: No adenopathy SpO2 Interpretation: normal O2 Delivery: Room Air - Course Nursing assessment & vital signs reviewed: Yes EKG Interpreted by Me: RATE (101), Sinus Tach, NORMAL AXIS, NORMAL INTERVALS, NORMAL QRS Ordered Tests: Active Orders 24 hr Category Date Time Status Alley Cleaner STAT Care 05/08/19 20:12 Active EKG-ER Only STAT Care 05/08/19 20:11 Active IV Insertion STAT Care 05/08/19 20:11 Active Pulse Oximetry (ED) STAT Care 05/08/19 20:11 Active CBC W DIFF Stat Lab 05/08/19 20:25 Completed CMP Stat Lab 05/08/19 20:25 Completed TROPONIN Q3H Lab 05/08/19 20:25 Completed TROPONIN Q3H Lab 05/08/19 23:15 Ordered TROPONIN Q3H Lab 05/09/19 02:15 Ordered TROPONIN Q3H Lab 05/09/19 05:15 Ordered TROPONIN Q3H Lab 05/09/19 08:15 Ordered Medication Summary Discontinued Medications Generic Name Dose Route Start Last Admin Trade Name Yue PRN Reason Stop Dose Admin Aspirin 324 mg 05/08/19 20:35 05/08/19 20:42 Baby Aspirin 81 Mg Chew PO 05/08/19 20:36 324 mg STAT ONE Administration Lab/Rad Data: Laboratory Result Diagrams 05/08/19 20:25 05/08/19 20:25 Laboratory Results 05/08/19 05/08/19 05/08/19 Range/Units 20:25 20:25 20:25 WBC 7.4 (4.0-10.5) K/mm3 RBC 4.61 (4.1-5.4) M/mm3 Hgb 14.3 (12.0-16.0) gm/dl Hct 42.9 (35-47) % MCV 93.1 (78-100) fl MCH 31.0 (26-32) pg MCHC 33.3 (32-36) g/dl RDW 14.1 H (11.5-14.0) % Plt Count 314 (150-450) K/mm3 MPV 8.9 (7.5-11.0) fl Gran % 71.2 H (36.0-66.0) % Eos # (Auto) 0.15 (0-0.5) Absolute Lymphs (auto) 1.38 (1.0-4.6) Absolute Monos (auto) 0.58 (0.0-1.3) Lymphocytes % 18.6 L (24.0-44.0) % Monocytes % 7.8 (0.0-12.0) % Eosinophils % 2.0 (0.00-5.0) % Basophils % 0.4 (0.0-0.4) % Absolute Granulocytes 5.27 (1.4-6.9) Basophils # 0.03 (0-0.4) Sodium 141 (137-145) mmol/L Potassium 3.5 (3.5-5.1) mmol/L Chloride 104 (98-107) mmol/L Carbon Dioxide 29 (22-30) mmol/L Anion Gap 11.6 (5-15) MEQ/L BUN 15 (7-17) mg/dL Creatinine 0.74 (0.52-1.04) mg/dL Estimated GFR > 60.0 ML/MIN Glucose 99 (74-106) mg/dL Calcium 9.2 (8.4-10.2) mg/dL Total Bilirubin 0.30 (0.2-1.3) mg/dL AST 19 (14-36) U/L ALT 12 (0-35) U/L Alkaline Phosphatase 61 (38-126) U/L Troponin I < 0.012 (0.000-0.034) ng/mL Serum Total Protein 7.7 (6.3-8.2) g/dL Albumin 4.4 (3.5-5.0) g/dL - Progress Progress: improved Progress Note: 05/08/19 21:14 Patient denies chest pain at this time. Patient states she feels very good. She does not feel the anxiety she had prior to her arrival. Patient desires to be discharged to home. Counseled pt/family regarding: lab results, diagnosis, need for follow-up - Departure Departure Disposition: Home Clinical Impression: Hypertension Condition: Stable Critical Care Time: No Referrals: BRAYDEN BROWN MD [Primary Care Provider] - Additional Instructions: Continue your medication as prescribed. Follow-up with your primary care physician for further management
[2019-05-08] MEDS ORDERED: BABY ASPIRIN 81 MG CHEW PO ONE (20:35)
[2019-05-08 20:48] LABS: Absolute Neutrophil Ct (ANC) 5.27 (1.4-6.9); BASOPHIL % 0.4 % (0.0-0.4); Basophil (Absolute #) 0.03 (0-0.4); Eosinophil (Absolute #) 0.15 (0-0.5); Hematocrit 42.9 % (35-47); Hemoglobin 14.3 gm/dl (12.0-16.0); Lymphocyte (Absolute #) 1.38 (1.0-4.6); Lymphocytes % 18.6 % (24.0-44.0); Mean Cell Volume 93.1 fl (78-100); Mean Corpuscular Hgb Concent. 33.3 g/dl (32-36); Mean Platelet Volume 8.9 fl (7.5-11.0); Monocyte (Absolute #) 0.58 (0.0-1.3); Monocytes % 7.8 % (0.0-12.0); Neutrophil % 71.2 % (36.0-66.0); Platelet Count 314 K/mm3 (150-450); Red Blood Count 4.61 M/mm3 (4.1-5.4); Red Cell Distribution Width 14.1 % (11.5-14.0); White Blood Count 7.4 K/mm3 (4.0-10.5)
[2019-05-08 20:58] LABS: ALBUMIN 4.4 g/dL (3.5-5.0); ALKALINE PHOSPHATASE 61 U/L (38-126); ANION GAP 11.6 MEQ/L (5-15); BLOOD UREA NITROGEN 15 mg/dL (7-17); CHLORIDE 104 mmol/L (98-107); Calcium 9.2 mg/dL (8.4-10.2); Carbon Dioxide 29 mmol/L (22-30); Creatinine 1 0.74 mg/dL (0.52-1.04); Glucose 99 mg/dL (74-106); Potassium 3.5 mmol/L (3.5-5.1); SGOT/AST 19 U/L (14-36); SGPT/ALT 12 U/L (0-35); SODIUM 141 mmol/L (137-145); Total Protein 7.7 g/dL (6.3-8.2)
[2019-05-08 22:07] VITALS: BP 152/93; PULSE 100; O2SAT 97
== END 2019-05-08 22:07 | disposition home or self-care (01) ==
LOC: ED 19:32
DX: I10 Essential (primary) hypertension (principal); Z72.0 Tobacco use; Z79.899 Other long term (current) drug therapy
CPT/HCPCS: 36000; 36415; 80053; 84484; 85025; 93005; 93041; 94760; 99284; A9270-GY

== ENCOUNTER 2022-09-15 07:26 | Day surgery (SDC) | payer OTHER ==
[2022-09-15] MEDS ORDERED: Depo-Medrol 40 MG/ML IM ONE (07:27)
[2022-09-15] MEDS ORDERED: LIDOCAINE HCL 1% 50 MG/5 ML VL PF IJ ONE (07:27)
[2022-09-15] MEDS ORDERED: BUPIVACAINE 0.5% VIAL IJ ONE (07:27)
[2022-09-15] MEDS ORDERED: DIPRIVAN 200 MG/20 ML IV ONE (08:50)
[2022-09-15] MEDS ORDERED: Lactated Ringers 1,000 ML IV ONE (09:25)
--- NOTE | 2022-09-15 10:24 | XRAY ---
Indication: Bilateral SI joint injection. Intraoperative fluoroscopy provided for 13 seconds. 4 digital spot image submitted for interpretation demonstrates posterior needle tip projecting over the left and right SI joint. Correlate with intraoperative findings/report.
--- NOTE | 2022-09-15 10:30 | XRAY ---
13 seconds of fluoroscopy was used in surgery for a bilateral sacroiliac joint injection.
== END 2022-09-15 09:20 | disposition home or self-care (01) ==
LOC: SDC-PAIN 07:26
PROVIDERS: ATTEND Psychiatry & Neurology Pain Medicine
DX: M46.1 Sacroiliitis, not elsewhere classified (principal); Z79.899 Other long term (current) drug therapy
CPT/HCPCS: 20553; 27096; 72202; 77002; G0260; J1030; J2001; J2704

== ENCOUNTER 2022-12-28 08:43 | Day surgery (SDC) | payer MEDICARE ==
[2022-12-28] MEDS ORDERED: BUPIVACAINE 0.5% VIAL IJ ONE (08:44)
[2022-12-28] MEDS ORDERED: Depo-Medrol 40 MG/ML IM ONE (08:44)
[2022-12-28] MEDS ORDERED: DIPRIVAN 200 MG/20 ML IV ONE (10:46)
--- NOTE | 2022-12-28 11:50 | XRAY ---
21 seconds of fluoroscopy was used in surgery for a right intra-articular hip injection.
--- NOTE | 2022-12-28 11:50 | XRAY ---
Indication: Right hip injection. Intraoperative fluoroscopy provided for 21 seconds. Single digital spot image submitted for interpretation demonstrates needle tip projecting lateral to right femur neck. Small amount of contrast injected for needle tip placement. Correlate with intraoperative findings/report.
[2022-12-28] MEDS ORDERED: Lactated Ringers 1,000 ML IV ONE (12:09)
== END 2022-12-28 11:20 | disposition home or self-care (01) ==
LOC: SDC-PAIN 08:43
PROVIDERS: ATTEND Psychiatry & Neurology Pain Medicine
DX: M16.11 Unilateral primary osteoarthritis, right hip (principal); Z79.899 Other long term (current) drug therapy
CPT/HCPCS: 20610; 73501; 77002; J1030; J2704; Q9966

== ENCOUNTER 2024-12-18 11:52 | Day surgery (SDC) | payer MEDICARE, OTHER ==
[2024-12-18] MEDS ORDERED: LIDOCAINE HCL 2% 100 MG/5 ML IJ ONE (11:53)
--- NOTE | 2024-12-18 14:51 | XRAY ---
Indication: Bilateral L4-S1 MBB. Intraoperative fluoroscopy provided for 11 seconds. Single digital spot image submitted for interpretation demonstrates posterior needle tips projecting over expected left and right L4-S1 nerve roots. Correlate with intraoperative findings/report.
--- NOTE | 2024-12-18 16:59 | XRAY ---
11 seconds of fluoroscopy was used in surgery for a bilateral L4-S1 MBB.
== END 2024-12-18 14:05 | disposition home or self-care (01) ==
LOC: SDC-PAIN 11:52
PROVIDERS: ATTEND Psychiatry & Neurology Pain Medicine
DX: M47.817 Spondylosis without myelopathy or radiculopathy, lumbosacral region (principal)

== ENCOUNTER 2025-01-08 12:12 | Day surgery (SDC) | payer MEDICARE, OTHER ==
[2025-01-08] MEDS ORDERED: BUPIVACAINE 0.5% VIAL IJ ONE (12:13)
[2025-01-08] MEDS ORDERED: propofoL IV ONE (13:41)
--- NOTE | 2025-01-08 15:10 | XRAY ---
Indication: Bilateral L4-S1 MBB. Intraoperative fluoroscopy provided for 14 seconds. Single digital spot image submitted for interpretation demonstrates posterior needle tips projecting over expected left and right L4-S1 nerve roots. Correlate with intraoperative findings/report.
--- NOTE | 2025-01-08 15:17 | XRAY ---
14 seconds of fluoroscopy was used in surgery for a bilateral L4-S1 MBB.
[2025-01-08] MEDS ORDERED: Lactated Ringers 1,000 ML IV ONE (15:28)
== END 2025-01-08 14:07 | disposition home or self-care (01) ==
LOC: SDC-PAIN 12:12
PROVIDERS: ATTEND Psychiatry & Neurology Pain Medicine
DX: M47.817 Spondylosis without myelopathy or radiculopathy, lumbosacral region (principal)